=== PATIENT | male | born 1940 | race African-American/Black ===

== ENCOUNTER 2016-06-24 09:14 | Outpatient (CLI) | payer MEDICARE ==
--- NOTE | 2016-06-26 12:23 | Ultrasound Report ---
ULTRASOUND ABDOMEN COMPLETE: Technique: Transabdominal ultrasound with color Doppler interrogation. History: abdominal pain. Findings: The liver is normal size, contour and echotexture. The gallbladder dimensions are within normal limits without intraluminal stone, wall thickening, or pericholecystic fluid. The CBD is normal caliber. The visualized portions of the pancreas including the head and proximal body are within normal limits. The kidneys demonstrate no hydronephrosis or mass. Cortical thickness and echogenicity are within normal limits bilaterally. The spleen and aorta are within normal limits. No aneurysmal dilatation is noted. No ascites. The bladder is unremarkable. IMPRESSION: Unremarkable abdominal ultrasound.
== END 2016-06-24 09:15 | disposition home or self-care (01) ==
LOC: US 09:14
PROVIDERS: ATTEND Internal Medicine
DX: R10.9 Unspecified abdominal pain (principal)
CPT/HCPCS: 76700

== ENCOUNTER 2017-07-18 14:10 | Outpatient (CLI) | payer MEDICARE ==
--- NOTE | 2017-07-18 22:00 | XRay Report ---
FINAL REPORT PROCEDURE: Left knee. TECHNIQUE: Three views. HISTORY: Knee pain. COMPARISON: No prior studies are available for comparison. FINDINGS: The bones appear intact without fracture or dislocation. The joint spaces appear normal. The soft tissues are unremarkable. There is no evidence of a knee effusion. IMPRESSION: Normal study.
--- NOTE | 2017-07-18 22:29 | XRay Report ---
FINAL REPORT PROCEDURE: Right ribs. TECHNIQUE: AP and oblique views. HISTORY: Rib pain. COMPARISON: No prior studies are available for comparison. FINDINGS: The right-sided ribs appear intact. There are no fractures or other osseous abnormalities. There is no evidence of a pneumothorax. IMPRESSION: Normal study.
== END 2017-07-18 14:11 | disposition home or self-care (01) ==
LOC: XRAY 14:10
PROVIDERS: ATTEND Internal Medicine
DX: S20.211A Contusion of right front wall of thorax, initial encounter (principal); S80.02XA Contusion of left knee, initial encounter; X58.XXXA Exposure to other specified factors, initial encounter; Y93.89 Activity, other specified; Y92.89 Other specified places as the place of occurrence of the external cause; Y99.8 Other external cause status

== ENCOUNTER 2017-08-15 10:36 | Outpatient (CLI) | payer MEDICARE ==
--- NOTE | 2017-08-15 11:06 | XRay Report ---
ROUTINE CHEST, TWO VIEWS: HISTORY: Wheezing. The trachea, heart, mediastinal contour, lung boss and bony thorax are unremarkable. IMPRESSION: Unremarkable chest x-ray.
== END 2017-08-15 10:37 | disposition home or self-care (01) ==
LOC: XRAY 10:36
PROVIDERS: ATTEND Internal Medicine
DX: R06.2 Wheezing (principal)
CPT/HCPCS: 71046

== ENCOUNTER 2018-11-01 12:02 | Emergency (ER) | payer MEDICARE ==
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
--- NOTE | 2018-11-01 13:53 | XRay Report ---
RIGHT HAND HISTORY: Pain. COMPARISON: None. TECHNIQUE: 3 views of the right hand were obtained. FINDINGS: Bones: No fracture or dislocation. Osteopenia. 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 No erosions. Rest of the joint spa yovany are normal. Soft tissues: No significant abnormality. Additional findings: None. IMPRESSION: 1. 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 2. No other significant abnormality. Signer Name: Jasen Talbert MD Signed: 11/01/2018 1:48 PM Workstation Name: [id number]
--- NOTE | 2018-11-01 13:55 | XRay Report ---
BILATERAL RIBS with PA CHEST HISTORY: Pain. COMPARISON: None. TECHNIQUE: I 5 views of the ribs were obtained. FINDINGS: Bones: No fracture or dislocation. No rib lesion. Joint spaces: Maintained. Soft tissues: No significant abnormality. Heart: Normal. Lungs: A left lower lobe calcified granuloma and otherwise clear lungs. No pneumothorax. Additional findings: Degenerative change in the spine. IMPRESSION: 1. No rib fracture or rib lesion. 2. Old granulomatous disease and no acute cardiopulmonary process. Signer Name: Jasen Talbert MD Signed: 11/01/2018 1:51 PM Workstation Name: [id number]
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
[2018-11-01 15:19] VITALS: BP 122/74
== END 2018-11-01 15:18 | disposition home or self-care (01) ==
LOC: ED 12:02
DX: M79.641 Pain in right hand (principal); R07.89 Other chest pain; E78.00 Pure hypercholesterolemia, unspecified; V43.52XA Car driver injured in collision with other type car in traffic accident, initial encounter; Y93.89 Activity, other specified; Y92.488 Other paved roadways as the place of occurrence of the external cause; Y99.8 Other external cause status
CPT/HCPCS: 71111; 99283